=== PATIENT | female | born 1970 | race African-American/Black ===

== ENCOUNTER 2022-06-25 08:26 | Outpatient (CLI) | payer OTHER | END 2022-06-25 08:27 | disposition home or self-care (01) | LOC: CT 08:26 | PROVIDERS: ATTEND Internal Medicine | DX: C50.411 Malignant neoplasm of upper-outer quadrant of right female breast (principal); K76.9 Liver disease, unspecified; R91.1 Solitary pulmonary nodule; J98.4 Other disorders of lung; E04.1 Nontoxic single thyroid nodule; M53.3 Sacrococcygeal disorders, not elsewhere classified; Z90.11 Acquired absence of right breast and nipple | CPT/HCPCS: 71260; 74177; 78306; A9503 ==